=== PATIENT | female | born 1990 | race Caucasian/White ===

== ENCOUNTER → 2016-09-22 | Outpatient (CLI) | payer OTHER ==
[~2016-09-22] MED LIST: OXYC1SOL5 PO; PREN1TAB30
== END ==
LOC: HPND 10:04
PROVIDERS: ATTEND Obstetrics & Gynecology
DX: O36.80X0 Pregnancy with inconclusive fetal viability, not applicable or unspecified (principal); O34.211 Maternal care for low transverse scar from previous cesarean delivery
CPT/HCPCS: 76801; 76817

== ENCOUNTER 2017-05-04 05:30 | Inpatient (IN) | payer OTHER ==
--- NOTE | 2017-05-03 12:25 | MH ---
cc: REMY ALBARADO DATE OF ADMISSION: 05/04/2017 ADMISSION DIAGNOSIS 1. Term . 2. Previous for failure to progress and distress. HISTORY OF PRESENT ILLNESS 27-year-old white female, para 1-0-0-1 with EDC of 05/11/2017 by early ultrasound. Her course was benign. Strep cultures negative. She is now admitted for repeat section. PAST MEDICAL HISTORY PREVIOUS SURGERY . ALLERGIES None. TRANSFUSIONS None. MEDICATIONS Vitamins. SOCIAL HISTORY She is . She is a teacher. Alcohol, tobacco and drugs are none. FAMILY HISTORY Noncontributory. PHYSICAL EXAMINATION GENERAL: A well-nourished, well-developed white female. VITAL SIGNS: Stable. HEENT: Exam is normal. CHEST: Chest is clear. HEART: Regular rate. BREASTS: The breasts are symmetrical. ABDOMEN/PELVIC: Gravid. EFW of 3500 grams. Cervix is closed. ___ normal. Ultrasounds have shown placenta posterior. ASSESSMENT As above. The patient is admitted for repeat section. While in the office I explained the procedures, the risks, benefits and complications and the patient wishes to proceed. MD ISHA Abdi/LUIS /12:02 PM /12:08 PM
[~2017-05-04] VITALS: Ht 160 cm; Wt 75.3 kg
[2017-05-04] VITALS (20 sets, daily range): BP systolic 102–132; BP diastolic 55–77; PULSE 83–106; RESP 9–20; TEMP 97.4–98.4; O2SAT 95–100
[2017-05-04] MEDS ORDERED: PREN1TAB63 (06:28)
[2017-05-04] MEDS ORDERED: FERR325C PO (06:29)
[2017-05-04] MEDS ORDERED: LACTATED RINGER'S 1000 ML IV ONE (06:30)
[2017-05-04] MEDS ORDERED: ceFAZolin 1,000 MG/NS 100 ML IV SCH ×2 (06:30)
[2017-05-04] MEDS ORDERED: LACTATED RINGER'S 1000 ML IV SCH (06:30)
[2017-05-04] MEDS ORDERED: CITRIC ACID-SODIUM CITRATE LIQ 30 ML UDC PO SCH (06:30)
[2017-05-04 06:37] LABS: AUTOMATED NEUTROPHIL # 10.4 TH/MM3 (1.8-7.7); BASOPHIL % 0.3 % (0.0-2.0); EOSINOPHIL # 0.1 TH/MM3 (0-0.4); EOSINOPHIL % 0.6 % (0.0-4.0); HEMATOCRIT 37.7 % (35.0-46.0); HEMO FLAGS DIFF FINAL; LYMPH % 19.8 % (9.0-44.0); LYMPHOCYTE # 2.8 TH/MM3 (1.0-4.8); MEAN CELL VOLUME 96.6 FL (80.0-100.0); MEAN CORPUSCULAR HEMOGLOBIN 33.6 PG (27.0-34.0); MEAN CORPUSCULAR HGB CONC 34.8 % (32.0-36.0); MONO % 5.5 % (0.0-8.0); NEUT % 73.8 % (16.0-70.0); PLATELET COUNT 229 TH/MM3 (150-450); RED CELL DISTRIBUTION WIDTH 13.5 % (11.6-17.2)
[2017-05-04 07:04] LABS: BACTERIA, URINE FEW /hpf; BLOOD, URINE NEG (NEG); CALCIUM OXALATE CRYSTALS,URINE MOD /hpf; COMMENT (UR) CULT NOT INDICATED; CULTURE IF INDICATED CULT NOT INDICATED; GLUCOSE,URINE NEG (NEG); KETONE, URINE NEG (NEG); MUCUS URINE FEW /lpf (OCC); NITRITE,URINE NEG (NEG); PH, URINE 6.5 (5.0-8.5); SQUAMOUS EPITHELIAL CELL URINE 4 /hpf (0-5); URINE COLOR YELLOW (YELLW/STRAW)
[2017-05-04] MEDS ORDERED: MORPHINE SULFATE PF 5 MG/10 ML VIAL ONE (07:09)
[2017-05-04] MEDS ORDERED: ZOLPIDEM TARTRATE 5 MG TAB PO PRN (08:30)
[2017-05-04] MEDS ORDERED: SIMETHICONE 80 MG CHEWABLE TAB PO PRN (08:30)
[2017-05-04] MEDS ORDERED: DOCUSATE SODIUM 50 MG/SENNA 8.6 MG TAB PO PRN (08:30)
[2017-05-04] MEDS ORDERED: SODIUM CHLORIDE 0.9% FLUSH 10 ML FLUSH IV FLUSH PRN (08:30)
[2017-05-04] MEDS ORDERED: KETOROLAC TROMETHAMINE 60 MG/2 ML (IM) VIAL IM PRN (08:30)
[2017-05-04] MEDS ORDERED: OXYTOCIN 30 UNITS-500ML PREMIX 500 ML IV ONE (08:30)
[2017-05-04] MEDS ORDERED: ONDANSETRON HCL 4 MG/2 ML VIAL IVP PRN (08:30)
[2017-05-04] MEDS: ACETAMINOPHEN 1000 MG/100 ML VIAL IV SCH ×2 (08:38→17:18)
--- NOTE | 2017-05-04 08:51 | MP ---
cc: REMY ALBARADO DATE OF SURGERY: 05/04/2017 PREOPERATIVE DIAGNOSIS 1. Term . 2. Previous . POSTOPERATIVE DIAGNOSIS 1. Term . 2. Previous . 3. Delivered PROCEDURE Repeat low transverse section. ANESTHESIA Spinal. SURGEON Laurel Mahajan MD DIRECTOR OF SOFTWARE ENGINEERING CALE Padilla. ESTIMATED BLOOD LOSS 700 cc. FLUIDS Two liters crystalloid. OBJECTIVE FINDINGS Following the induction of adequate spinal anesthesia the patient was prepped and draped supine on the operating table in the left lateral tilt position in usual sterile fashion with the bladder being drained via Saldana catheterization. The abdomen was opened through a Pfannenstiel incision using a knife to excise the left lateral portion of her old scar which had a keloid. The fascia was opened transversely, stripped from the muscles. The rectus muscle was split in the midline. The peritoneum was opened sharply without incident. The bladder flap was taken down sharply, retracted with a [place] blade. The lower uterine segment was incised transversely with a knife, extended with blunt dissection. The membranes were ruptured of clear fluid. The baby was in the LOT position. The vacuum extractor was applied to the occiput and used to gently lift the head through the abdominal wound. The mouth was suctioned, the cord clamped and cut, and the baby passed to the awaiting team, a viable vigorous male, Apgars 9 and 9, weight 9 pounds 2 ounces. The cord blood was collected for typing. The placenta was manually removed and the uterine cavity cleaned with laps. The uterus was exteriorized and closed in two layers with running suture, first with a running locking stitch of 0 Vicryl, the second with a running imbricating stitch of 0 Vicryl. Posterior inspection of the uterus, tubes and ovaries was normal. The uterus was placed in the peritoneal cavity. Irrigation was performed. No bleeding was evident. The bladder flap was closed with a running stitch of 3-0 Vicryl. All laps and retractors were removed. Counts were correct. The anterior peritoneum was closed with a running stitch of 2-0 Vicryl. The fascia was closed with a running locking stitch of 0 Vicryl corner to midline and tied. The subcu was closed with running 3-0 Vicryl and skin with running subcuticular 3-0 Monocryl. Dermabond was applied. All counts were correct. The patient was awakened and taken to the recovery room in good position. MD ISHA Abdi/ALEKSANDR /8:22 AM /8:37 AM
[2017-05-04] MEDS ORDERED: MEASLES, MUMPS, RUBELLA VACCINE 0.5 ML VIAL SQ ONE (09:00)
[2017-05-04] MEDS ORDERED: SODIUM CHLORIDE 0.9% FLUSH 10 ML FLUSH IV FLUSH SCH (09:00)
[2017-05-04] MEDS ORDERED: diphenhydrAMINE HCL 50 MG/ML VIAL ONE (09:25)
[2017-05-04] MEDS ORDERED: OXYTOCIN 30 UNITS-500ML PREMIX 500 ML ONE (09:32)
[2017-05-04] MEDS ORDERED: EPIDURAL-NO SYSTEMIC NARCOTICS PRN (10:30)
[2017-05-04] MEDS ORDERED: EPIDURAL-DO NOT ADMINISTER ANTICOAGULANTS PRN (10:30)
[2017-05-04] MEDS ORDERED: EPIDURAL-DIPHENHYDRAMINE HCL 50 MG/ML VIAL IV PUSH PRN (10:30)
[2017-05-04] MEDS ORDERED: EPIDURAL-DIPHENHYDRAMINE HCL 50 MG CAP PO PRN (10:30)
[2017-05-04] MEDS ORDERED: EPIDURAL-NALOXONE HCL 0.4 MG/ML AMP IV PUSH PRN (10:30)
[2017-05-04] MEDS ORDERED: ONDANSETRON HCL 4 MG/2 ML VIAL IV PUSH ONE (12:00)
[2017-05-04] MEDS ORDERED: LACTATED RINGER'S 1000 ML INJ 2,000 ML IV ONE (12:00)
[2017-05-04] MEDS ORDERED: OXYTOCIN 10 UNIT/ML AMP IV ONE (12:00)
[2017-05-04] MEDS ORDERED: GLYCOPYRROLATE 1 MG/5 ML SYRINGE IV PUSH ONE (12:00)
[2017-05-04] MEDS ORDERED: ePHEDrine/NS 25 MG/5 ML SYR IV ONE (12:00)
[2017-05-04] MEDS ORDERED: LACTATED RINGER'S 1000 ML INJ 1,000 ML IV SCH (13:04)
[2017-05-04] MEDS: KETOROLAC TROMETHAMINE 30 MG/ML (IVP) VIAL IV PUSH PRN (17:19)
[2017-05-04] MEDS ORDERED: OXYTOCIN 30 UNITS-500ML PREMIX 500 ML IV PRN (18:15)
[2017-05-05 00:46] VITALS: BP 91/62; PULSE 78; RESP 16; TEMP 98.3
[2017-05-05] MEDS: ACETAMINOPHEN 1000 MG/100 ML VIAL IV SCH (01:04)
[2017-05-05 04:20] VITALS: PULSE 72; RESP 16; TEMP 98
[2017-05-05 05:54] LABS: AUTOMATED NEUTROPHIL # 9.7 TH/MM3 (1.8-7.7); BASOPHIL % 0.2 % (0.0-2.0); EOSINOPHIL # 0.1 TH/MM3 (0-0.4); EOSINOPHIL % 0.7 % (0.0-4.0); HEMATOCRIT 32.6 % (35.0-46.0); HEMO FLAGS DIFF FINAL; LYMPH % 18.3 % (9.0-44.0); LYMPHOCYTE # 2.4 TH/MM3 (1.0-4.8); MEAN CELL VOLUME 98.5 FL (80.0-100.0); MEAN CORPUSCULAR HEMOGLOBIN 34.3 PG (27.0-34.0); MEAN CORPUSCULAR HGB CONC 34.8 % (32.0-36.0); MONO % 6.8 % (0.0-8.0); PLATELET COUNT 183 TH/MM3 (150-450); RED BLOOD COUNT 3.31 MIL/MM3 (4.00-5.30); RED CELL DISTRIBUTION WIDTH 13.8 % (11.6-17.2); WHITE BLOOD COUNT 13.1 TH/MM3 (4.0-11.0)
[2017-05-05] MEDS: KETOROLAC TROMETHAMINE 30 MG/ML (IVP) VIAL IV PUSH PRN (05:54)
[2017-05-05 06:07] LABS: BICARBONATE 22.8 MEQ/L (21.0-32.0); POTASSIUM 3.5 MEQ/L (3.5-5.1)
[2017-05-05 08:00] VITALS: BP 114/75; PULSE 74; RESP 16; TEMP 97.9
[2017-05-05] MEDS: oxyCODONE/ACETAMINOPHEN 5 MG/325 MG TAB PO PRN ×4 (08:17→23:47)
[2017-05-05] MEDS ORDERED: DIPHTH/TETANUS/ACEL PERTUSSIS (BOOSTER) 0.5 ML VIAL/PFS IM ONE (09:00)
[2017-05-05] MEDS ORDERED: INFLUENZA VIRUS VACCINE (QUADRIVALENT) 0.5 ML SYR IM ONE (10:00)
[2017-05-05] MEDS: IBUPROFEN 600 MG TAB PO PRN ×2 (15:04→21:19)
[2017-05-05 20:00] VITALS: PULSE 90; TEMP 98.1
[2017-05-06] MEDS: IBUPROFEN 600 MG TAB PO PRN ×2 (03:42→09:00)
[2017-05-06] MEDS: oxyCODONE/ACETAMINOPHEN 5 MG/325 MG TAB PO PRN ×2 (03:43→09:00)
[2017-05-06 08:09] VITALS: BP 115/75; PULSE 80
[2017-05-06] MEDS ORDERED: OXYC1TAB63 PO (11:31)
--- NOTE | 2017-05-06 11:31 | HHI.DCPOC ---
Discharge Care Plan Report Symptoms to Your Doctor -Temperature above 100.5 degrees -Redness, of incision or excessive or foul smelling drainage -Unusual pain or calf pain -Increased vaginal bleeding -Painful or difficulty urinating -Feelings of extreme sadness or anxiety after 2 weeks Goals to Promote Your Health * To prevent worsening of your condition and complications * To maintain your health at the optimal level Directions to Meet Your Goals Take your medications as prescribed Follow your dietary instruction Follow activity as directed Ensure plenty of rest for recovery Drink fluids for hydration Keep your appointments as scheduled Take your immunizations and boosters as scheduled If your symptoms worsen call your PCP, if no PCP go to Urgent Care Center or Emergency Room Smoking is Dangerous to Your Health. Avoid second hand smoke Call the 24-hour crisis hotline for domestic abuse at Dany Barragan MD May 06, 2017 11:31
--- NOTE | 2017-05-06 15:33 | MD ---
cc: REMY ALBARADO. ADMISSION DATE: 05/04/2017 DISCHARGE DATE: 05/06/2017 ADMISSION DIAGNOSIS: 1. Term . 2. Previous section. DISCHARGE DIAGNOSIS: 1. Term . 2. Previous section. 3. Delivered. OPERATIVE PROCEDURE PERFORMED: Repeat low transverse section on 05/04/2017. HISTORY OF PRESENT ILLNESS: The patient is a 27-year-old white female para 1-0-0-1 with an estimated date of confinement of 05/11/2017 early ultrasound. Her course was benign. Her labs include Rh positive nonreactive, rubella immune, rubeola immune, GARCIA negative, Pap negative, glucose screen was normal. Strep culture was negative. Previous delivery by for failure to progress and distress. HOSPITAL COURSE: On the day of admission she underwent a repeat low transverse section with delivery of a viable vigorous male, Apgars were nine and nine and weight 9 pounds 2 ounces. The baby was named Scott Wallace and she is breast feeding. she did well, discharged home in excellent condition 05/06/2017. Her pre and postop labs were normal. She was advised NPV light activity, no driving and return to see me in one week. She and her were very carefully instructed on , wound instruction care. She was given a prescription for Percocet 5's one to two p.o. q. 4 hours PRN pain #60, [id number] Motrin and will also take her iron pills and vitamins daily. MD ISHA Abdi/LISA /11:33 AM /3:28 PM
== END 2017-05-06 13:37 | disposition home or self-care (01) | DRG 766 ==
LOC: H2EB 05:30 → H1EA 09:54
PROVIDERS: ADMIT Obstetrics & Gynecology; ATTEND Obstetrics & Gynecology
PROC: 10D00Z1 Extraction of Products of Conception, Low, Open Approach (ICD-10-PCS; principal; 2017-05-04)
DX: O34.211 Maternal care for low transverse scar from previous cesarean delivery (principal); Z37.0 Single live birth; Z3A.39 39 weeks gestation of pregnancy
CPT/HCPCS: 59025; 80048; 81001; 85025; 86703; 86850; 86900; 86901; 90686; 90715; J0131; J0690; J1200; J1885; J2274; J2405; J2590; J7120; Q2038